=== PATIENT | male | born 1960 | race Caucasian/White ===

== ENCOUNTER 2021-01-01 10:23 | Emergency (ER) | payer BC ==
[~2021-01-01] VITALS: Ht 180.3 cm; Wt 95.3 kg
[2021-01-01 10:45] VITALS: BP 160/76
[2021-01-01] MEDS ORDERED: CEPH500T PO (11:25)
--- NOTE | 2021-01-01 11:25 | ED Upper Extremity ---
General Chief Complaint: Foreign Body Stated Complaint: L THUMB, INDEX FINGER LURES INSERTED Nursing Triage Note: PT ARRIVED BY PRIVATE VEHICLE WITH CHIEF COMPLAINT OF FISHING LURE IN 1ST AND 2ND FINGER OF LEFT HAND. PT STATED ONSET WAS 929 THIS MORNING WHEN HE WAS PULLING A LINE OUT OF THE TREE AND IT CAME BACK INTO HIS FINGERS. PT WAS ALERT, ORIENTED X 4 AND AMBULATORY TO FAST TRACK 1 ON ARRIVAL. PT'S VITALS WERE DONE. PT IS UNSURE ABOUT TDAP BUT FEW MONTHS AGO HIS PCP SAID HE DID NOT NEED IT. PT HAS HISTORY OF MRSA AND STATED HE WILL PROBABLY NEED AN ANTIBIOTIC. Source: patient Exam Limitations: no limitations History of Present Illness Date Seen by Provider: Jan 01, 2021 Time Seen by Provider: 11:24 Initial Comments Single rafael of a trouble hook from a fishing Lure into the dorsal aspect of the left thumb and left pointer finger. Tetanus is not up-to-date. He is also had a piece of metal in the right thumb he believes from an injury several months ago. He subsequently pulled out the piece of metal, saw a healthcare provider and had incision and drainage done and a prescription for Bactrim. Seem to improve at that point. He has not diabetic. He denies any systemic symptoms such as fevers or chills. Onset: just prior to arrival Severity: moderate Pain/Injury Location: left thumb, left 2nd finger Modifying Factors: Worse With Movement Allergies and Home Medications Allergies Coded Allergies: No Known Drug Allergies (Unverified , 01/01/21) Home Medications Doxycycline Hyclate 100 Mg Tablet, 100 MG PO BID Prescribed by: LASHAY BURT on 01/01/21 1149 Patient Home Medication List Home Medication List Reviewed: Yes Review of Systems Constitutional: see HPI EENTM: see HPI Respiratory: no symptoms reported Cardiovascular: no symptoms reported Genitourinary: no symptoms reported Musculoskeletal: see HPI Skin: no symptoms reported Psychiatric/Neurological: No Symptoms Reported Past Okzrvkg-Glhxlo-Oqfska Hx Patient Social History Tobacco Use?: Yes Tobacco type used: Cigarettes Smoking Status: Current Everyday Smoker Substance use?: Yes Substance type: Marijuana Substance frequency: Daily Alcohol Use?: No Pt feels they are or have been: No Physical Exam Vital Signs Vital Signs - First Documented 01/01/21 10:45 Temp 36.5 Pulse 72 Resp 18 B/P (MAP) 160/76 (104) Pulse Ox 96 O2 Delivery Room Air Capillary Refill : Less Than 3 Seconds Height, Weight, BMI Height: '" Weight: lbs. oz. kg; 29.00 BMI Method: General Appearance: WD/WN, no apparent distress Neck: non-tender, full range of motion Respiratory: no respiratory distress, no accessory muscle use Gastrointestinal: normal bowel sounds, non tender, soft Elbow/Forearm: normal inspection, non-tender Hand: Right, soft tissue tenderness (The puncture wound from the rafael was anesthetized with 0.5 mL 1% lidocaine without epinephrine at each of the puncture sites, one on the thumb and one on the pointer finger. The hook was then advanced through the skin and the rafael was removed and the hook was retracted out back on both barbs. Minimal bleeding. Normal neurovascular status.) Neurologic/Psychiatric: alert, normal mood/affect, oriented x 3 Skin: normal color, warm/dry the right thumb has a central punctum to the distal pad of the finger. I am not able to express any drainage. There is some slight purplish discoloration but no acute erythema or drainage. Progress/Results/Core Measures Results/Orders My Orders Orders - LASHAY BURT APRN Hand, Right, 3 Views (01/01/21 11:45) Doxycycline Hyclate Tablet (Vibramycin T (01/01/21 11:45) Dipht,Pertuss(Acell),Tet Adult (Boostrix (01/01/21 11:45) Medications Given in ED Current Medications Medications Dose Ordered Sig/Bienvenido Route Start Time Stop Time Status Last Admin Dose Admin Diphtheria/ Tetanus/Acell Pertussis 0.5 ml ONCE ONCE IM 01/01/21 11:45 01/01/21 11:46 DC 01/01/21 12:08 0.5 ML Vital Signs/I&O 01/01/21 10:45 Temp 36.5 Pulse 72 Resp 18 B/P (MAP) 160/76 (104) Pulse Ox 96 O2 Delivery Room Air Blood Pressure Mean: 104 Diagnostic Imaging Diagonstic Imaging: Xray Comments NAME: JUSTYN JENNINGS MED REC#: [id number] PT STATUS: REG ER : 1960 PHYSICIAN: LASHAY BURT APRN ADMIT DATE: 01/01/21/ER Draft Date of Exam:01/01/21 HAND, RIGHT, 3 VIEWS EXAMINATION: Right hand radiographs, 3 views. COMPARISON: None. HISTORY: 60-year-old male, injury with steel 2 weeks ago. FINDINGS: There is a deformity of the first distal phalanx of unclear exact etiology. There is loss of normal cortical contour. There is some suspicion of periosteal reaction at this location. There is no subluxation or dislocation. IMPRESSION: 1. Deformity of the right distal phalanx likely relating to fracture of uncertain age. 2. Periosteal reaction at the level of the first distal phalanx which potentially could relate to the fracture or osteomyelitis. Further evaluation with dedicated MRI of the right thumb is recommended. Dictated on workstation # [id number] Dict: 01/01/21 1156 Trans: 01/01/21 1201 CV [id number] Interpreted by: NURIA MCCAIN MD Electronically signed by: Departure Communication (Admissions) NAME: JUSTYN JENNINGS [facility] REC#: [id number] PT STATUS: REG ER : 1960 PHYSICIAN: LASHAY BURT APRN ADMIT DATE: 01/01/21/ER Draft Date of Exam:01/01/21 HAND, RIGHT, 3 VIEWS EXAMINATION: Right hand radiographs, 3 views. COMPARISON: None. HISTORY: 60-year-old male, injury with steel 2 weeks ago. FINDINGS: There is a deformity of the first distal phalanx of unclear exact etiology. There is loss of normal cortical contour. There is some suspicion of periosteal reaction at this location. There is no subluxation or dislocation. IMPRESSION: 1. Deformity of the right distal phalanx likely relating to fracture of uncertain age. 2. Periosteal reaction at the level of the first distal phalanx which potentially could relate to the fracture or osteomyelitis. Further evaluation with dedicated MRI of the right thumb is recommended. Dictated on workstation # [id number] Dict: 01/01/21 1156 Trans: 01/01/21 1201 CV [id number] Interpreted by: NURIA MCCAIN MD Electronically signed by: Impression Primary Impression: Superficial foreign body of finger Additional Impression: Osteomyelitis right thumb Disposition: 01 HOME, SELF-CARE Condition: Stable Departure-Patient Inst. Decision time for Depature: 11:24 Referrals: NO,LOCAL PHYSICIAN (PCP) Primary Care Physician KYLE WYNN MD Patient Instructions: NO INSTRUCTIONS GIVEN Add. Discharge Instructions: Call one of the orthopedic surgeons listed to make an appointment to be seen in regards to the thumb. The x-ray is abnormal and may indicate an infection of the bone in the thumb. Take the antibiotics as directed. All discharge instructions reviewed with patient and/or family. Voiced understanding. Scripts Doxycycline Hyclate (Doxycycline Hyclate) 100 Mg Tablet 100 MG PO BID, #14 TAB 0 Refills Prov: LASHAY BURT QUILL FIXER 01/01/21 Copy Copies To 1: KYLE WYNN MD, PETER J QUILL FIXER Jan 01, 2021 11:25
[2021-01-01] MEDS ORDERED: TETANUS,DIPTH,PERTUSS P/F (BOOSTRIX) 0.5 ML VIAL IM ONE (11:45)
[2021-01-01] MEDS ORDERED: DOXYCYCLINE 100 MG (VIBRAMYCIN) TABLET PO SCH (11:45)
[2021-01-01] MEDS ORDERED: DOXY100T2 PO (11:49)
--- NOTE | 2021-01-01 12:01 | Diagnostic Imaging Report ---
EXAMINATION: Right hand radiographs, 3 views. COMPARISON: None. HISTORY: 60-year-old male, injury with steel 2 weeks ago. FINDINGS: There is a deformity of the first distal phalanx of unclear exact etiology. There is loss of normal cortical contour. There is some suspicion of periosteal reaction at this location. There is no subluxation or dislocation. IMPRESSION: 1. Deformity of the right distal phalanx likely relating to fracture of uncertain age. 2. Periosteal reaction at the level of the first distal phalanx which potentially could relate to the fracture or osteomyelitis. Further evaluation with dedicated MRI of the right thumb is recommended. Dictated on workstation # [id number]
== END 2021-01-01 12:20 | disposition home or self-care (01) ==
LOC: ER 10:27
DX: S60.450A Superficial foreign body of right index finger, initial encounter (principal); M86.8X4 Other osteomyelitis, hand; F17.210 Nicotine dependence, cigarettes, uncomplicated; Z23 Encounter for immunization; W31.2XXA Contact with powered woodworking and forming machines, initial encounter
CPT/HCPCS: 73130; 90715

== ENCOUNTER → 2021-01-30 | Outpatient (CLI) | payer BC ==
[~2021-01-30] MED LIST: CEPH500T PO; DOXY100T2 PO; GADOBUTROL 10 MMOL/10 ML (GADAVIST) VIAL IV ONE
--- NOTE | 2021-01-30 11:10 | Diagnostic Imaging Report ---
PROCEDURE: MRI right upper extremity with and without contrast. TECHNIQUE: Multiplanar, multisequence pre and post contrast-enhanced MRI of the right upper extremity was accomplished. INDICATION: Infection of the thumb. COMPARISON: Hand radiographs from 01/01/2021. FINDINGS: A dermal wound along the volar and radial aspect of the distal thumb has an associated rim-enhancing fluid collection measuring 1.2 x 0.6 cm. The proximal aspect of this collection abuts and erodes the tuft of the distal phalanx, accounting for the radiographic appearance. The majority of the distal phalanx has abnormal T2 hyperintense and enhancing intramedullary signal, indicative of osteomyelitis. The proximal phalanx does not have associated marrow changes. No features of infectious tenosynovitis along the flexor and extensor tendons. IMPRESSION: 1. The dermal wound in the distal thumb has an associated abscess extending deep to the tuft and resulting in erosions of the tuft. Additionally, there is associated osteomyelitis throughout the majority of the distal phalanx. 2. No osteomyelitis within the proximal phalanx. Dictated by: Dictated on workstation # [id number]
== END ==
LOC: RAD 08:00
PROVIDERS: ATTEND Orthopaedic Surgery
DX: M86.9 Osteomyelitis, unspecified (principal)
CPT/HCPCS: 73220

== ENCOUNTER 2021-03-07 12:38 | Outpatient (RCR) | payer BC ==
[2021-02-05 13:20] VITALS: BP 0/0
[2021-02-05 13:30] LABS: BASOPHILS # (AUTO) 0.1 10^3/uL (0.0-0.1); BASOPHILS % (AUTO) 1 % (0-10); EOSINOPHILS # (AUTO) 0.3 10^3/uL (0.0-0.3); EOSINOPHILS % (AUTO) 4 % (0-10); HEMATOCRIT 40 % (40-54); HEMOGLOBIN 13.2 g/dL (13.3-17.7); LYMPHOCYTES # (AUTO) 1.9 10^3/uL (1.0-4.0); LYMPHOCYTES % (AUTO) 27 % (12-44); MEAN CORPUSCULAR HEMOGLOBIN 30 pg (25-34); MEAN CORPUSCULAR HGB CONC 33 g/dL (32-36); MEAN CORPUSCULAR VOLUME 90 fL (80-99); MEAN PLATELET VOLUME 10.7 fL (9.0-12.2); MONOCYTES # (AUTO) 0.4 10^3/uL (0.0-1.0); MONOCYTES % (AUTO) 5 % (0-12); NEUTROPHILS # (AUTO) 4.4 10^3/uL (1.8-7.8); NEUTROPHILS % (AUTO) 63 % (42-75); PLATELET COUNT 239 10^3/uL (130-400)
[2021-02-05 13:37] LABS: POTASSIUM 3.7 MMOL/L (3.6-5.0)
[2021-02-05 13:38] LABS: CALCIUM 8.8 MG/DL (8.5-10.1)
[2021-02-05 13:39] LABS: TOTAL PROTEIN 6.1 GM/DL (6.4-8.2)
[2021-02-05 13:41] LABS: BILIRUBIN,TOTAL 0.3 MG/DL (0.1-1.0)
[2021-02-05 13:43] LABS: CREATININE SERUM 0.81 MG/DL (0.60-1.30)
[2021-02-05 14:12] LABS: BAND NEUTROPHILS 0 %; BASOPHILS % (MANUAL) 1 %; EOSINOPHILS % (MANUAL) 3 %; LYMPHOCYTES % (MANUAL) 29 %; MONOCYTES % (MANUAL) 0 %; NEUTROPHILS % (MANUAL) 67 %
[2021-02-05 14:13] LABS: TARGET CELLS SLIGHT
[2021-02-05 14:19] LABS: ERYTHROCYTE SEDIMENTATION RATE 5 MM/HR (0-30)
[2021-02-06 15:40] VITALS: BP 0/0
[2021-02-08 16:10] VITALS: BP 0/0
[2021-02-20 14:30] VITALS: BP 116/68
[2021-02-20 14:40] LABS: BASOPHILS # (AUTO) 0.1 10^3/uL (0.0-0.1); BASOPHILS % (AUTO) 1 % (0-10); EOSINOPHILS # (AUTO) 0.4 10^3/uL (0.0-0.3); EOSINOPHILS % (AUTO) 7 % (0-10); HEMATOCRIT 39 % (40-54); HEMOGLOBIN 13.2 g/dL (13.3-17.7); LYMPHOCYTES # (AUTO) 1.8 X 10^3 (1.0-4.0); LYMPHOCYTES % (AUTO) 30 % (12-44); MEAN CORPUSCULAR HEMOGLOBIN 30 pg (25-34); MEAN CORPUSCULAR HGB CONC 34 g/dL (32-36); MEAN CORPUSCULAR VOLUME 89 fL (80-99); MEAN PLATELET VOLUME 10.2 fL (9.0-12.2); MONOCYTES # (AUTO) 0.3 X 10^3 (0.0-1.0); MONOCYTES % (AUTO) 5 % (0-12); NEUTROPHILS # (AUTO) 3.4 X 10^3 (1.8-7.8); NEUTROPHILS % (AUTO) 57 % (42-75); PLATELET COUNT 267 10^3/uL (130-400); WHITE BLOOD COUNT 5.9 10^3/uL (4.3-11.0)
[2021-02-20 14:49] LABS: ALBUMIN 4.1 GM/DL (3.2-4.5); POTASSIUM 4.5 MMOL/L (3.6-5.0)
[2021-02-20 14:50] LABS: CALCIUM 9.4 MG/DL (8.5-10.1)
[2021-02-20 14:51] LABS: TOTAL PROTEIN 6.6 GM/DL (6.4-8.2)
[2021-02-20 14:53] LABS: BILIRUBIN,TOTAL 0.3 MG/DL (0.1-1.0)
[2021-02-20 14:55] LABS: CREATININE SERUM 0.82 MG/DL (0.60-1.30)
[2021-02-20 15:01] LABS: ERYTHROCYTE SEDIMENTATION RATE 6 MM/HR (0-30)
[2021-02-20 15:02] LABS: BASOPHILS % (MANUAL) 1 %; EOSINOPHILS % (MANUAL) 9 %; LYMPHOCYTES % (MANUAL) 28 %; MONOCYTES % (MANUAL) 2 %; NEUTROPHILS % (MANUAL) 30 %; RBC MORPH NORMAL
[2021-02-26 11:10] VITALS: BP 125/74
[2021-02-26 11:37] LABS: BASOPHILS # (AUTO) 0.1 10^3/uL (0.0-0.1); BASOPHILS % (AUTO) 1 % (0-10); EOSINOPHILS # (AUTO) 0.3 10^3/uL (0.0-0.3); EOSINOPHILS % (AUTO) 5 % (0-10); HEMATOCRIT 41 % (40-54); HEMOGLOBIN 13.5 g/dL (13.3-17.7); LYMPHOCYTES # (AUTO) 1.8 10^3/uL (1.0-4.0); LYMPHOCYTES % (AUTO) 31 % (12-44); MEAN CORPUSCULAR HEMOGLOBIN 30 pg (25-34); MEAN CORPUSCULAR HGB CONC 33 g/dL (32-36); MEAN CORPUSCULAR VOLUME 91 fL (80-99); MONOCYTES # (AUTO) 0.3 10^3/uL (0.0-1.0); MONOCYTES % (AUTO) 6 % (0-12); NEUTROPHILS # (AUTO) 3.2 10^3/uL (1.8-7.8); NEUTROPHILS % (AUTO) 56 % (42-75); PLATELET COUNT 253 10^3/uL (130-400); WHITE BLOOD COUNT 5.6 10^3/uL (4.3-11.0)
[2021-02-26 12:00] LABS: ALBUMIN 4.2 GM/DL (3.2-4.5); BILIRUBIN,TOTAL 0.6 MG/DL (0.1-1.0); CALCIUM 9.9 MG/DL (8.5-10.1); CREATININE SERUM 0.79 MG/DL (0.60-1.30); POTASSIUM 4.3 MMOL/L (3.6-5.0); TOTAL PROTEIN 6.5 GM/DL (6.4-8.2)
[2021-02-26 12:03] LABS: BAND NEUTROPHILS 0 %; BASOPHILS % (MANUAL) 1 %; EOSINOPHILS % (MANUAL) 2 %; ERYTHROCYTE SEDIMENTATION RATE 5 MM/HR (0-30); LYMPHOCYTES % (MANUAL) 30 %; MONOCYTES % (MANUAL) 6 %; NEUTROPHILS % (MANUAL) 61 %; RBC MORPH NORMAL
[~2021-03-07] VITALS: Ht 180.3 cm; Wt 95.3 kg
[~2021-03-07 12:38] MED LIST changes: -GADOBUTROL 10 MMOL/10 ML (GADAVIST) VIAL IV ONE
[2021-03-07 13:00] VITALS: BP 123/64
[2021-03-07 13:24] LABS: BASOPHILS # (AUTO) 0.1 10^3/uL (0.0-0.1); BASOPHILS % (AUTO) 1 % (0-10); EOSINOPHILS # (AUTO) 0.3 10^3/uL (0.0-0.3); EOSINOPHILS % (AUTO) 5 % (0-10); HEMATOCRIT 41 % (40-54); HEMOGLOBIN 13.6 g/dL (13.3-17.7); LYMPHOCYTES # (AUTO) 1.9 10^3/uL (1.0-4.0); LYMPHOCYTES % (AUTO) 30 % (12-44); MEAN CORPUSCULAR HEMOGLOBIN 30 pg (25-34); MEAN CORPUSCULAR HGB CONC 33 g/dL (32-36); MEAN CORPUSCULAR VOLUME 91 fL (80-99); MEAN PLATELET VOLUME 10.7 fL (9.0-12.2); MONOCYTES # (AUTO) 0.3 10^3/uL (0.0-1.0); MONOCYTES % (AUTO) 5 % (0-12); NEUTROPHILS # (AUTO) 3.7 10^3/uL (1.8-7.8); NEUTROPHILS % (AUTO) 58 % (42-75); PLATELET COUNT 257 10^3/uL (130-400); WHITE BLOOD COUNT 6.3 10^3/uL (4.3-11.0)
[2021-03-07 13:33] LABS: ALBUMIN 4.2 GM/DL (3.2-4.5); POTASSIUM 4.1 MMOL/L (3.6-5.0)
[2021-03-07 13:34] LABS: CALCIUM 9.5 MG/DL (8.5-10.1)
[2021-03-07 13:35] LABS: TOTAL PROTEIN 6.6 GM/DL (6.4-8.2)
[2021-03-07 13:37] LABS: BILIRUBIN,TOTAL 0.3 MG/DL (0.1-1.0)
[2021-03-07 13:39] LABS: CREATININE SERUM 0.82 MG/DL (0.60-1.30)
[2021-03-07 14:01] LABS: EOSINOPHILS % (MANUAL) 2 %; LYMPHOCYTES % (MANUAL) 29 %; MONOCYTES % (MANUAL) 4 %; NEUTROPHILS % (MANUAL) 65 %
[2021-03-07 14:02] LABS: RBC MORPH NORMAL
[2021-03-07 14:10] LABS: ERYTHROCYTE SEDIMENTATION RATE 4 MM/HR (0-30)
== END 2021-03-13 14:16 | disposition home or self-care (01) ==
LOC: SDC 12:38
PROVIDERS: ATTEND Internal Medicine Infectious Disease
DX: M86.9 Osteomyelitis, unspecified (principal)
CPT/HCPCS: 80053; 82550; 85007; 85027; 85652; G0463; 36415; 99211

== ENCOUNTER → 2021-05-18 | Outpatient (CLI) | payer BC ==
--- NOTE | 2021-05-18 11:08 | Diagnostic Imaging Report ---
CLINICAL INDICATION: Patient has had a bad back for years getting to where he cannot stand at work for long extended periods of time. EXAM: X-ray of the lumbar spine, five views. COMPARISON: None. FINDINGS: There is no acute lumbar spine fracture or dislocation. There is subtle left curvature of the lumbar spine. There are multilevel mild to moderately hypertrophic spurs throughout the visualized thoracic and lumbar spine. There is lumbar spine facet arthropathy. There is multilevel loss of disc space height, which is severe at the L1-L2 level and moderate at the L4-L5 level. There is mild loss of disc space height at the L2-L3, L3-L4, and L5-S1 levels. Sacroiliac joints show no significant abnormality. Partially visualized left hip hardware is seen. IMPRESSION: 1: There is no acute lumbar spine fracture or dislocation. 2: There is multilevel lumbar spine degenerative disease with multilevel loss of disc space height. MRI of the lumbar spine would better evaluate for possible disc herniations. Dictated by: Dictated on workstation # [id number]
== END ==
LOC: RAD 10:11
PROVIDERS: ATTEND Internal Medicine
DX: M51.36 Other intervertebral disc degeneration, lumbar region (principal); G47.09 Other insomnia; M47.816 Spondylosis without myelopathy or radiculopathy, lumbar region
CPT/HCPCS: 72110